=== PATIENT | male | born 1960 | race Caucasian/White ===

== ENCOUNTER 2017-11-28 05:13 | Day surgery (SDC) | payer OTHER ==
--- NOTE | ~2017-11-28 | OP ---
PATIENT NAME: ANTONY MENDEZ MEDICAL RECORD: [id number] :62 LOCATION:D[facility] ADMISSION DATE: SURGEON: GENE HART MD DATE OF OPERATION: 11/28/2017 PREOPERATIVE DIAGNOSIS: Anal fistula. POSTOPERATIVE DIAGNOSIS: Anal fistula. PROCEDURE: 1. Anal evaluation under anesthesia. 2. Anal fistulotomy. 3. Marsupialization of the wound with curettage. SURGEON: Gene Hart MD CHIP FRIER: None. BLOOD LOSS: 25 cc. ANESTHESIA: General. COMPLICATIONS: None. OPERATIVE FINDINGS: There was an ulcerated area within the anus and lower rectum. I cannot rule out an anal or rectal malignancy. Cultures were obtained as well as some incisional biopsies. The risks, possible complications and alternatives to the procedure were explained to the patient. He elects to proceed. The discussion specifically included, but was not limited to, bleeding requiring an emergency reoperation, infection, recurrence of the fistula. The patient has never had an anal operation before. OPERATIVE COURSE: The patient was conveyed the operating room electively on 11/28/2017. General anesthesia was induced by the anesthesia staff. The patient was placed in the lithotomy position. The buttocks were taped laterally. The anus and perianal area were sterilely prepped and draped. I dilated the anus laterally to 3 fingers. U-shaped anal retractors were placed. There was no evidence of an anal fissure. At 10 o'clock, there were 2 fistulous openings that were draining purulent material. Through the one that was most lateral and that was 4 cm from the anal verge, I advanced a fistula probe and it came out through the secondary opening. I then opened up this fistula with electrocautery over the probe. Through the nearest fistulous opening, I was able to advance a fistula probe and it came out through a large indurated ulcerated area within the lower rectum and the anus. I then opened up the fistulous tract over this probe. I then curetted out the fistula tract. Some incisional biopsies were obtained with a rongeur. Hemostasis was achieved with electrocautery as well as with hydrogen peroxide. I then marsupialized the wound with running locking 3-0 Vicryl Rapide suture. I packed Gelfoam within the anus and lower rectum. A Marcaine and a steroid preparation were used to infiltrate the perianal tissues for postoperative analgesia. A topical anesthetic ointment was applied to the external hemorrhoids. OPERATIVE REPORT [id number] ANTONY MENDEZ The patient was then extubated and conveyed to post-anesthesia care unit where he was in stable condition. There is no need for him to follow up with me in the office. I would like to see him out at the snf when I do rounds out there in 4-6 weeks. He can be dismissed back to snf with Colace, a stool softener as well as Valium for anal muscle spasms as well as a narcotic analgesic. TRANSINT:[id number] Voice Confirmation ID: [id number] DOCUMENT ID: [id number] GENE HART MD at 1717 CC: [id number] DICTATION DATE: 11/28/17 1131 [facility] TEACHER: 11/28/17 1212 [facility] 11/28/17 [id number] [place] [address]
[2017-11-28] MEDS ORDERED: LISINOPRIL10 MG (06:35)
[2017-11-28] MEDS ORDERED: CYMBALTA20 MG PO (06:36)
[2017-11-28] MEDS ORDERED: HYDROCHLOROTHIA25 MG PO (06:36)
[2017-11-28 06:38] VITALS: BP 169/120; Wt 83.9 kg
[2017-11-28 06:53] LABS: APTT 28.8 SECONDS (22.8-39.4); INR 1.09 (0.85-1.17); PROTIME 13.7 SECONDS (11.6-15.0)
[2017-11-28 07:04] LABS: CALC OSMOLALITY 281 mosm/kg (275-300); CALCIUM 8.7 mg/dL (8.5-10.1); CARBON DIOXIDE 28.9 mmol/L (21.0-32.0); CHLORIDE - SERUM 106 mmol/L (98-107); CREATININE - SERUM 0.7 mg/dL (0.6-1.3); GLUCOSE 92 mg/dL (74-106); POTASSIUM - SERUM 3.9 mmol/L (3.5-5.1); SODIUM 140 mmol/L (136-145); UREA NITROGEN 20 mg/dL (7-18); eGFR NON AFRICAN AMERICAN > 90 mL/min (90-120)
[2017-11-28 07:16] LABS: BASOPHILS 0.5 % (0-2); HEMATOCRIT 41.6 % (42.0-54.0); HEMOGLOBIN 15.1 g/dL (13.5-17.5); IMMATURE GRANULOCYTES 0.5 % (0-5); LYMPHOCYTES 42.4 % (15-50); MCH 32.3 pg (26.0-34.0); MCHC 36.3 g/dL (31.0-37.0); MCV 89.1 fL (80.0-100.0); MEAN PLATELET VOLUME 10.4 fL (7.4-10.4); MONOCYTES 12.9 % (2-11); NEUTROPHILS 40.7 % (40-80); PLATELET COUNT 184 10x3/uL (130-400); RBC 4.67 10x6/uL (4.20-6.10); RDW 12.5 % (11.5-14.5); WBC 6.6 10x3/uL (4.8-10.8)
[2017-12-03 17:16] LABS: AEROBE ID Final report (())
[2017-12-06 20:06] LABS: AEROBE ID Final report (())
== END 2017-11-28 14:00 | disposition home or self-care (01) ==
LOC: D.OPS 05:13
PROVIDERS: Anesthesiology; Surgery
DX: K60.3 Anal fistula (principal); I10 Essential (primary) hypertension; Z01.812 Encounter for preprocedural laboratory examination